=== PATIENT | female | born 2000 | race Caucasian/White ===

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

== ENCOUNTER 2021-04-02 18:56 | Emergency (ER) | payer OTHER, SELFPAY ==
--- NOTE | ~2021-04-02 | XR_ITS ---
XR lumbar spine 2-3V DATE: 04/02/2021 22:34 INDICATION: Lower back pain for one week. No injury. TECHNIQUE: AP, lateral, coned lateral lumbosacral views COMPARISON: None FINDINGS: There is mild levoscoliosis of the lumbar spine. No fracture or bone destruction is evident. The included lower thoracic and lumbar pedicles are intac t. The lumbar and lumbosacral interspaces appear relatively preserved. The sacroiliac joints are norm al. IMPRESSION: Mild levoscoliosis Reviewed, dictated and finalized at location A. IMPRESSION: Mild levoscoliosis
[2021-04-02 19:18] VITALS: BP 169/92; PULSE 95; RESP 16; TEMP 36.3; O2SAT 100
[2021-04-02 21:05] VITALS: BP 140/96; PULSE 89; RESP 16; O2SAT 98
[2021-04-02] MEDS: KETOROLAC (*BKC) 60 MG/2 ML VIAL IM (22:09)
[2021-04-02] MEDS: ORPHENADRINE CITRATE 100 MG TABLET.ER PO (22:11)
[2021-04-02 22:23] LABS: Add Urine Microscopic? YES; Appearance Urine Clear (Clear); Bilirubin Urine Negative (Negative); Blood Urine Negative (Negative); Color Urine Yellow (Yellow); Glucose Urine UA Negative (Negative); Ketones Urine Negative (Negative); Leukocyte Esterase Ur Negative LEU/UL (Negative); Mucus Urine Rare /lpf; Nitrate Urine Negative (Negative); Protein Urine 2+ mg/dL (Negative); Squamous Epithelial Cell Urine Many /hpf (Few); WBC Urine 0-3 /hpf
--- NOTE | 2021-04-02 23:02 | ED.GENADULT ---
HPI - General Adult General Chief complaint: Back Pain/Injury Stated complaint: back pain Time Seen by Provider: 04/02/21 21:48 History of Present Illness HPI narrative: Patient 21-year-old female presents the emergency department with chief complaint of back pain. Patient reports some for several months she has been having pain in her lumbar region that radiates out into the sides of her back. Patient denies any bowel or bladder dysfunction denies numbness or tingling denies focal neurological deficit. Related Data Allergies Allergy/AdvReac Type Severity Reaction Status Date / Time tea tree Allergy Unknown Unknown Verified 03/03/19 21:47 No Known Drug Allergies Allergy Unknown Verified 11/08/20 15:04 Review of Systems Review of Systems: A 10 system review of systems was completed on the patient and is negative except for what is stated in the HPI. Nursing and ancillary documentation was reviewed. [facility] Past Medical History Medical History Bipolar 1 disorder Morbid obesity Surgical History Surgical History History of ovarian cystectomy History of placement of ear tubes History of tonsillectomy Family History Family History Father Hypertension Social History Social History Smoking packs per day: 0.2 Smoking cigarettes per day: 4.0 Years smoked: 1 Smoking pack-years: 0.20 Smoking status: Never smoker Tobacco type: cigarettes Second hand tobacco smoke exposure: Yes Alcohol intake: never Substance use: former Substance use type: marijuana Last use: 09/18/2020 Gender identity (if verbalized by the patient): Female Spiritual care concerns: No Exam Narrative: GENERAL: Well-appearing, well-nourished, and in no acute distress. HEAD: Normocephalic, atraumatic. EYES: PERRLA and EOMI. ENT: Nares clear, no rhinorrhea or epistaxis. Mucous membranes moist. NECK: Supple. CHEST: Clear to auscultation. No respiratory distress. HEART: Regular rate and rhythm. No murmur heard. Normal peripheral pulses. ABDOMEN: Soft, nontender, nondistended, normal active bowel sounds. EXTREMITIES: Normal range of motion. No edema. SKIN: Warm, dry, no rash. NEURO: No focal deficits. Alert and oriented x3. PSYCH: Normal mood and affect. Course Vital Signs Vital signs: Vital Signs Temperature 36.3 C L 04/02/21 19:18 Pulse Rate 95 04/02/21 19:18 Respiratory Rate 16 04/02/21 19:18 Blood Pressure 169/92 H 04/02/21 19:18 Pulse Oximetry 100 04/02/21 19:18 Temperature 36.3 C L 04/02/21 19:18 Pulse Rate 89 04/02/21 21:05 Respiratory Rate 16 04/02/21 21:05 Blood Pressure 140/96 H 04/02/21 21:05 Pulse Oximetry 98 04/02/21 21:05 Medical Decision Making Vital Signs Vital Signs: Vital Signs Temperature 36.3 C L 04/02/21 19:18 Pulse Rate 95 04/02/21 19:18 Respiratory Rate 16 04/02/21 19:18 Blood Pressure 169/92 H 04/02/21 19:18 Pulse Oximetry 100 04/02/21 19:18 Temperature 36.3 C L 04/02/21 19:18 Pulse Rate 89 04/02/21 21:05 Respiratory Rate 16 04/02/21 21:05 Blood Pressure 140/96 H 04/02/21 21:05 Pulse Oximetry 98 04/02/21 21:05 Lab Data Labs: Lab Results 04/02/21 Range/Units 22:11 Urine Color Yellow (Yellow) Urine Appearance Clear (Clear) Urine pH 5.0 (5.0-9.0) Ur Specific Goldvein 1.030 (1.001-1.035) Urine Protein 2+ H (Negative) mg/dL Urine Glucose (UA) Negative (Negative) mg/dL Urine Ketones Negative (Negative) mg/dL Ur Blood (Man) Negative (Negative) Urine Nitrate Negative (Negative) Urine Bilirubin Negative (Negative) Urine Urobilinogen 2.0 H (<2.0) mg/dL Leukocyte Esterase Rfl Negative (Negative) NIRANJAN/UL Urine RBC 3-5 H (0-2) /hpf
[2021-04-02 23:20] VITALS: BP 140/78; PULSE 88; RESP 18; O2SAT 100
== END 2021-04-02 23:21 | disposition home or self-care (01) ==
PROVIDERS: Emergency Provider Emergency Medicine
DX: M54.5 Low back pain (principal); F31.9 Bipolar disorder, unspecified; E66.01 Morbid (severe) obesity due to excess calories; F17.210 Nicotine dependence, cigarettes, uncomplicated
CPT/HCPCS: 72100; 81001; 81025; 96372; 99283; A9270; J1885

== ENCOUNTER 2021-05-11 09:57 | Emergency (ER) | payer OTHER, SELFPAY ==
[2021-05-11 10:04] VITALS: BP 126/95; PULSE 76; RESP 16; O2SAT 98
--- NOTE | 2021-05-11 10:24 | ED.GENADULT ---
HPI - General Adult General Chief complaint: Upper Respiratory Infection Stated complaint: Congestion,Cough Source: patient Mode of arrival: ambulatory Limitations: no limitations History of Present Illness HPI narrative: Patient is a 21-year-old female who presents to the [facility] via POV for evaluation of URI symptoms that have been present for 3 weeks. Additionally, she reports wet, nonproductive cough, nasal congestion, rhinorrhea, and sore throat. No relief with OTC sinus medications. Nothing improves or worsen symptoms. Patient was seen at this facility approximately 3 weeks ago and diagnosed with a URI. She was prescribed an inhaler, prednisone, and an antibiotic. She also tested negative for Covid at that time. Symptoms persisted prompting today's visit. Patient admits that she vapes. She has received the first series of the Covid vaccine and is waiting until her symptoms resolved before receiving the second dose. She has an appointment for PCR testing at 1 PM today. She is also requesting documentation for work absence. Related Data Home Medications Medication Instructions Recorded Confirmed albuterol sulfate INHALATION 05/11/21 Allergies Allergy/AdvReac Type Severity Reaction Status Date / Time tea tree Allergy Unknown Unknown Verified 03/03/19 21:47 Review of Systems Review of Systems: Denies history of COPD, asthma, and pneumonia. Pertinent negatives: fever, sweats, chills, change in appetite, fatigue, skin color changes, headache, drooling, difficulty swallowing, dizziness, lymphadenopathy, ear pain/drainage, chest pain, heart murmurs, heart palpitations, shortness of breath, wheezing, cyanosis, hemoptysis, hoarseness, orthopnea, pleuritic pain, nausea, vomiting, diarrhea, and myalgias. PMFSH Past Medical History Medical History Bipolar 1 disorder Morbid obesity Surgical History Surgical History History of ovarian cystectomy History of placement of ear tubes History of tonsillectomy Family History Family History Father Hypertension Social History Social History Smoking packs per day: 0.2 Smoking cigarettes per day: 4.0 Years smoked: 1 Smoking pack-years: 0.20 Smoking status: Never smoker Tobacco type: cigarettes Second hand tobacco smoke exposure: Yes Alcohol intake: never Substance use: former Substance use type: marijuana Last use: 09/18/2020 Gender identity (if verbalized by the patient): Female Spiritual care concerns: No Comments I have reviewed and agree with the patient's past medical, surgical, social, and family hx as documented by the RN. There is no relevant family history pertinent to the presenting complaint. Exam Narrative: GENERAL: Well-appearing, well-nourished, and in no acute distress. HEAD: Normocephalic, atraumatic. No sinus tenderness or facial swelling appreciated. EYES: PERRLA and EOMI. No evidence of erythema, swelling, or drainage. ENT: Bilateral external ears and ear canals normal. Bilateral TMs are normal.No TM perforation. Nares clear, no rhinorrhea or epistaxis. Bilateral turbinates without erythema/ swelling. Mucous membranes moist and pink. Uvula is midline without erythema and swelling. No evidence of petechial rash, cobblestoning, lesions, ulcers, erythema, swelling, exudates, peritonsillar abscess, tenting, or drooling. Breath odor and voice normal. NECK: Supple. No Lymphadenopathy or nuchal rigidity appreciated. CHEST: Moderate rhonchi is noted throughout posterior bilateral lung pereira. No evidence of pleuritic cp upon examination. Mild, nonproductive, wet cough appreciated upon examination. HEART: Regular rate and rhythm. No murmur, gallop, or rub heard. EXTREMITIES: Normal range o
== END 2021-05-11 10:34 | disposition home or self-care (01) ==
PROVIDERS: Emergency Provider Nurse Practitioner Family
DX: J40 Bronchitis, not specified as acute or chronic (principal); E66.01 Morbid (severe) obesity due to excess calories; Z68.43 Body mass index [BMI] 50.0-59.9, adult
CPT/HCPCS: 99213; G0463

== ENCOUNTER 2021-06-01 08:47 | Emergency (ER) | payer OTHER, SELFPAY ==
[2021-06-01 08:56] VITALS: BP 144/95; PULSE 78; RESP 16; TEMP 37.4; O2SAT 99
--- NOTE | 2021-06-01 09:04 | ED.NAVMDI ---
HPI - Nausea/Vomiting/Diarrhea General Chief complaint: Nausea/Vomiting/Diarrhea Stated complaint: vomiting/diarrhea Source: patient Mode of arrival: ambulatory Limitations: no limitations History of Present Illness HPI Narrative: Patient is a 21-year-old female who presents complaining of sudden onset of nausea, vomiting and diarrhea starting early a.m. Patient reports approximately 6 episodes of nausea and vomiting since midnight, she reports 6 small episodes of diarrhea. She reports stomach is crampy and rumbling . She reports Covid vaccinated x1. She denies exposure to Covid or influenza. She denies significant medical history. Patient reports she is unable to hold down fluids at this time. Patient reports she is 5 weeks gestation, she denies vaginal discharge or bleeding, she denies pelvic pain. Patient's SIGN FABRICATOR is Dr. Cain Riley, she does not have PCP. MD elicited complaint: nausea, vomiting and diarrhea Related Data Allergies Allergy/AdvReac Type Severity Reaction Status Date / Time tea tree Allergy Unknown Unknown Verified 06/01/21 09:02 Review of Systems Review of Systems: CONSTITUTIONAL: Denies fever, chills, or sweats. EYES: Denies visual changes, redness, or discharge. ENT: Denies rhinorrhea, congestion, sore throat, or otalgia. CARDIOVASCULAR: Denies chest pain, palpitations, or edema. RESPIRATORY: Denies cough or dyspnea. GASTROINTESTINAL: Reports abdominal discomfort, nausea, vomiting, and diarrhea. GENITOURINARY: Denies dysuria or hematuria. SKIN: Denies rash or itching. MUSCULOSKELETAL: Denies back pain, joint pain, or myalgia. NEUROLOGIC: Denies headache, numbness, dizziness, or weakness. PSYCHIATRIC: Denies anxiety or depression. [facility] Past Medical History Medical History Bipolar 1 disorder Morbid obesity Surgical History Surgical History History of ovarian cystectomy History of placement of ear tubes History of tonsillectomy Family History Family History Father Hypertension Social History Social History Smoking packs per day: 0.2 Smoking cigarettes per day: 4.0 Years smoked: 1 Smoking pack-years: 0.20 Smoking status: Never smoker Tobacco type: cigarettes Second hand tobacco smoke exposure: Yes Alcohol intake: never Substance use: former Substance use type: marijuana Last use: 09/18/2020 Gender identity (if verbalized by the patient): Female Spiritual care concerns: No Comments At the time of signature, I have reviewed and agree with nursing past medical, surgical, social, and family history unless otherwise noted. Please see nursing chart for further information. There is no relevant family history pertinent to the presenting complaint. Exam Narrative: GENERAL: Well-appearing, well-nourished, and in no acute distress. HEAD: Normocephalic, atraumatic. EYES: EOMI. No redness or drainage. Conjunctiva are normal. ENT: Mucous membranes pink and moist. NECK: AROM. Supple. No lymphadenopathy. CHEST: No respiratory distress. HEART: Regular rate and rhythm. No murmur appreciated. Normal peripheral pulses. GI: Soft, nontender without rebound, or guarding. No distention. MUSCULOSKELETAL: No bony tenderness. EXTREMITIES: Normal range of motion. No edema. SKIN: Warm, dry, no rash. NEURO: No focal deficits. Alert and oriented x3. Gait steady. PSYCH: Normal affect. No signs of depression or anxiety. Course Vital Signs Vital signs: Vital Signs Temperature 37.4 C 06/01/21 08:56 Pulse Rate 78 06/01/21 08:56 Respiratory Rate 16 06/01/21 08:56 Blood Pressure 144/95 H 06/01/21 08:56 Pulse Oximetry 99 06/01/21 08:56 Temperature 37.4 C 06/01/21 08:56 Pulse Rate 78 06/01/21 08:56 Respiratory Rate 16 06/01/21 08:
[2021-06-01] MEDS: ONDANSETRON INJ 4 MG/2 ML VIAL IV PUSH (09:19)
[2021-06-01] MEDS: SODIUM CHLORIDE 0.9% IV 1,000 ML 999 ML IV CONT (09:21)
--- NOTE | 2021-06-01 09:33 | PC.NURSE ---
CALL PLACED TO DR SANDOVAL'S OFFICE. PROVIDER RABIA VASQUEZ SPOKE WITH FRITZ AT THE OFFICE.
== END 2021-06-01 10:15 | disposition home or self-care (01) ==
PROVIDERS: Emergency Provider Nurse Practitioner
DX: O21.9 Vomiting of pregnancy, unspecified (principal); Z3A.01 Less than 8 weeks gestation of pregnancy; O99.611 Diseases of the digestive system complicating pregnancy, first trimester; R19.7 Diarrhea, unspecified
CPT/HCPCS: 96361; 96374; 99214; G0463; J2405; J7030

== ENCOUNTER 2021-07-07 18:26 | Emergency (ER) | payer OTHER, SELFPAY ==
[2021-07-07 18:27] VITALS: BP 154/96; PULSE 97; RESP 17; TEMP 36.7; O2SAT 100
--- NOTE | 2021-07-07 21:15 | ED.FEMALEGU ---
HPI - Female Genitourinary General Chief complaint: Urogenital-Female <Merly Girard PA-C - Last Filed: 07/07/21 21:33> Stated complaint: yeast infection? 11 weeks <Merly Girard PA-C - Last Filed: 07/07/21 21:33> Time Seen by Provider: 07/07/21 20:58 <Merly Girard PA-C - Last Filed: 07/07/21 21:33> Source: patient <Merly Girard PA-C - Last Filed: 07/07/21 21:33> Mode of arrival: ambulatory <JUANPABLO Degroot Last Filed: 07/07/21 21:33> Limitations: no limitations <Merly Girard PA-C - Last Filed: 07/07/21 21:33> History of Present Illness HPI Narrative: This is a 21 year old , about 11 weeks , presents to the emergency department for vulvovaginal irritation. Ongoing over the last couple of days. Reports she has noted itching to the area. Reports redness and white discharge. Does report some discomfort with urination. She has had a normal ultrasound this . Her OB is Dr. Cain Riley. Denies fever, pelvic cramping or vaginal bleeding. <Merly Girard PA-C - Last Filed: 07/07/21 21:33> Related Data Allergies/Adverse reactions: Allergies Allergy/AdvReac Type Severity Reaction Status Date / Time tea tree Allergy Unknown Unknown Verified 07/07/21 18:27 <Merly Girard PA-C - Last Filed: 07/07/21 21:33> Review of Systems Review of Systems: CONSTITUTIONAL: Denies fever GENITOURINARY: Reports dysuria. Denies hematuria. SKIN: Reports itching. <Merly Girard PA-C - Last Filed: 07/07/21 21:33> All systems reviewed & are unremarkable except as noted in HPI and below <Merly Girard PA-C - Last Filed: 07/07/21 21:33> PMFSH Past Medical History Medical History: Medical History Bipolar 1 disorder Morbid obesity <Merly Girard PA-C - Last Filed: 07/07/21 21:33> Surgical History Surgical History: Surgical History History of ovarian cystectomy History of placement of ear tubes History of tonsillectomy <Merly Girard PA-C - Last Filed: 07/07/21 21:33> Family History Family History: Family History Father Hypertension <Merly Girard PA-C - Last Filed: 07/07/21 21:33> Social History Social History: Social History Smoking packs per day: 0.2 Smoking cigarettes per day: 4.0 Years smoked: 1 Smoking pack-years: 0.20 Smoking status: Never smoker Tobacco type: cigarettes Second hand tobacco smoke exposure: Yes Alcohol intake: never Substance use: former Substance use type: marijuana Last use: 09/18/2020 Gender identity (if verbalized by the patient): Female Spiritual care concerns: No <Meryl Girard PA-C - Last Filed: 07/07/21 21:33> Exam Narrative: GENERAL: Well-appearing, well-nourished, and in no acute distress. HEAD: Normocephalic, atraumatic. EYES: EOMI. CHEST: Clear to auscultation. No respiratory distress. No wheezes rales or rhonchi HEART: Regular rate and rhythm. No murmur heard. Normal peripheral pulses. ABDOMEN: Soft, nontender, nondistended, normal active bowel sounds. EXTREMITIES: Normal range of motion. No edema. SKIN: Warm, dry, no rash. NEURO: No focal deficits. Alert and oriented x3. PSYCH: Normal mood and affect FEMALE GENITAL: Mild to moderate vulvovaginal irritation with white discharge <Merly Girard PA-C - Last Filed: 07/07/21 21:33> Course PALS NURSE/PA Physician Supervision For this patient encounter, I reviewed the PALS NURSE or PA documentation, treatment plan, and medical decision making. <Mani Valdez MD - Last Filed: 07/07/21 23:12> Vital Signs Vital signs: Vital Signs Temperature 98.0 F 07/07/21 18:27 Pulse Rate 97 07/07/21 18:27 Respiratory Rate 17 07/07/21 18:27 Blood Pressure
[2021-07-07 21:17] LABS: Add Urine Microscopic? YES; Appearance Urine Cloudy (Clear); Bacteria Urine Trace /hpf; Bilirubin Urine Negative (Negative); Blood Urine 1+ (Negative); Budding Yeast Urine Present /hpf; Color Urine Yellow (Yellow); Glucose Urine UA Negative (Negative); Ketones Urine Negative (Negative); Leukocyte Esterase Ur 3+ LEU/UL (Negative); Mucus Urine Rare /lpf; Nitrate Urine Negative (Negative); Protein Urine 2+ mg/dL (Negative); Specific Grav Ur 1.023 (1.001-1.035); Squamous Epithelial Cell Urine Many /hpf (Few); WBC Urine 21-30 /hpf
[2021-07-07] MEDS: NITROFURANTOIN MONOHYD MACROCR 100 MG CAP PO (21:47)
== END 2021-07-07 21:53 | disposition home or self-care (01) ==
PROVIDERS: Physician Assistant; Emergency Provider Emergency Medicine
DX: O98.811 Other maternal infectious and parasitic diseases complicating pregnancy, first trimester (principal); B20 Human immunodeficiency virus [HIV] disease; B37.3 Candidiasis of vulva and vagina; R82.71 Bacteriuria; Z3A.11 11 weeks gestation of pregnancy
CPT/HCPCS: 81001; 87086; 87088; 99283; A9270

== ENCOUNTER 2021-09-21 14:54 | Outpatient (CLI) | payer OTHER, SELFPAY ==
--- NOTE | ~2021-09-21 | US_ITS ---
EXAMINATION: US OB /maternal detail DATE: 09/21/2021 16:39 INDICATION: survey TECHNIQUE: Multiple obstetric sonographic images performed. FINDINGS: No prior studies for comparison. There is a single living fetus in variable presentation. The placenta is anterior without placenta p revia. Amniotic fluid volume is subjectively normal. cardiac activity and movement is noted with a heart rate of 134 beats per minute. The following anatomy was identified as normal: 4 chamber heart 3 vessel cord cord insertion kidneys urinary bladder stomach spine diaphragm ventricles The cerebellum, nuchal fold and cisterna magna are not adequately visualized. The following biometric data were obtained: BPD: 52mm corresponds to gestational age 21 weeks 5 days. Head circumference: 190 mm corresponds to gestational age 21 weeks 2 days. Abdominal circumference: 162 mm corresponds to gestational age 21 weeks 2 days. Femur length: 38 mm corresponds to gestational age 22 weeks 0 days. Head circumference to abdominal circumference ratio: 1.17 (normal range for expected gestational age is 1.06-1.24). Estimated weight: 434 grams +/- 65 grams using Hadlock method. IMPRESSION: 1: Single living intrauterine with an estimated gestational age of 21weeks 4days by current ultrasound measurements, with an EDC of 01/28/2022 in variable presentation. 2. Survey limited for evaluation of cerebellum, cisterna magna and nuchal fold. Otherwise, unremarka ble survey. Reviewed, dictated and finalized at location A. [facility] IMPRESSION: 1: Single living intrauterine with an estimated gestational age of 21 weeks 4days by current ultrasound measurements, with an EDC of 01/28/2022 in juan iable presentation. 2. Survey limited for evaluation of cerebellum, cisterna magna and nuchal fold . Otherwise, unremarkable survey.
== END 2021-09-21 14:55 | disposition home or self-care (01) ==
LOC: ANHIMG 14:58
PROVIDERS: Visit Provider Obstetrics & Gynecology
DX: Z36.89 Encounter for other specified antenatal screening (principal); Z3A.21 21 weeks gestation of pregnancy
CPT/HCPCS: 76805

== ENCOUNTER 2021-11-10 16:35 | Emergency (ER) | payer OTHER, SELFPAY ==
[2021-11-10 16:47] VITALS: BP 141/74; PULSE 95; RESP 16; TEMP 37.1; O2SAT 99
--- NOTE | 2021-11-10 17:03 | ED.FEMALEGU ---
HPI - Female Genitourinary General Chief complaint: Urogenital-Female Stated complaint: uri Time Seen by Provider: 11/10/21 16:59 Source: patient and RN notes reviewed Mode of arrival: ambulatory Limitations: no limitations History of Present Illness HPI Narrative: Patient presents today complaining of dysuria and urinary frequency with pink-tinged urine since noon today. Patient is currently [address] Cain Riley. She denies vaginal bleeding, abdominal pain or cramping, fever, back pain. Denies any recent antibiotic use. MD elicited complaint: dysuria Related Data Home Medications Medication Instructions Recorded Confirmed ferrous sulfate [FeroSul] 325 mg PO DAILY 11/10/21 11/10/21 Allergies Allergy/AdvReac Type Severity Reaction Status Date / Time tea tree Allergy Unknown Unknown Verified 11/10/21 16:40 Review of Systems Review of Systems: CONSTITUTIONAL: Denies body aches, fever, chills, or sweats. EYES: Denies visual changes, redness, or discharge. ENT: Denies rhinorrhea, congestion, sore throat, or otalgia. CARDIOVASCULAR: Denies chest pain, palpitations, or edema. RESPIRATORY: Denies cough or dyspnea. GASTROINTESTINAL: Denies abdominal pain, nausea, vomiting, or diarrhea. GENITOURINARY: + Dysuria, frequency, hematuria SKIN: Denies rash, itching, or wounds. MUSCULOSKELETAL: Denies back pain, joint pain, or myalgia. NEUROLOGIC: Denies headache, numbness, tingling, or weakness. PSYCH: Denies depression or anxiety. [facility]LY [facility] Past Medical History Medical History Bipolar 1 disorder Morbid obesity Surgical History Surgical History History of ovarian cystectomy History of placement of ear tubes History of tonsillectomy Family History Family History Father Hypertension Social History Social History Smoking packs per day: 0.2 Smoking cigarettes per day: 4.0 Years smoked: 1 Smoking pack-years: 0.20 Smoking status: Never smoker Tobacco type: cigarettes Second hand tobacco smoke exposure: Yes Alcohol intake: never Substance use: former Substance use type: marijuana Last use: 09/18/2020 Gender identity (if verbalized by the patient): Female Spiritual care concerns: No Comments At time of signature, I have reviewed and agree with nursing past medical, surgical, social and family history unless otherwise noted. Please see nursing chart for further information. There is no relevant family history pertinent to the presenting complaint Exam Narrative: GENERAL: Well-appearing, well-nourished, and in no acute distress. HEAD: Normocephalic, atraumatic. EYES: EOMI. No redness or drainage. Conjunctivae normal. ENT: Mucous membranes pink and moist. NECK: Normal AROM. CHEST: No respiratory distress. Clear to auscultation. HEART: Regular rate and rhythm. No murmur appreciated. Normal peripheral pulses. ABDOMEN: Soft, nontender, normal active bowel sounds. MUSCULOSKELETAL: No bony tenderness. EXTREMITIES: Normal range of motion. No edema. SKIN: Warm, dry, no rash. Capillary refill normal. Normal skin turgor. NEURO: No focal deficits. Alert and oriented x3. Gait steady. PSYCH: Normal affect. No signs of depression or anxiety. Course Course Level of Care: Express Care Visit Vital Signs Vital signs: Vital Signs Temperature 98.7 F 11/10/21 16:47 Pulse Rate 95 11/10/21 16:47 Respiratory Rate 16 11/10/21 16:47 Blood Pressure 141/74 H 11/10/21 16:47 Pulse Oximetry 99 11/10/21 16:47 Temperature 98.7 F 11/10/21 16:47 Pulse Rate 95 11/10/21 16:47 Respiratory Rate 16 11/10/21 16:47 Blood Pressure 141/74 H 11/10/21 16:47 Pulse Oximetry 99 11/10/21 16:47 Reviewed. Pt has been instructed to f
== END 2021-11-10 17:10 | disposition home or self-care (01) ==
PROVIDERS: Emergency Provider Nurse Practitioner
DX: O23.43 Unspecified infection of urinary tract in pregnancy, third trimester (principal); N39.0 Urinary tract infection, site not specified; Z3A.29 29 weeks gestation of pregnancy
CPT/HCPCS: 81003; 87077; 87086; 87088; 99213; G0463

== ENCOUNTER 2022-01-23 13:27 | Outpatient (CLI) | payer OTHER, SELFPAY ==
[2022-01-23 13:55] VITALS: BP 128/65; PULSE 80
[2022-01-23 14:01] VITALS: BP 131/76; PULSE 89
[2022-01-23 14:08] LABS: Basophils Percent Auto 0.4 % (0.2-1.2); Eosinophils Absolute Auto 0.2 K/mm3 (0-0.3); Eosinophils Percent Auto 1.6 % (0-4.4); Hematocrit 28.9 % (37.0-47.0); Hemoglobin 8.8 g/dL (12.0-15.0); Immature Granulocyte Absolute 0.07 K/mm3 (0.00-0.031); Immature Granulocyte Percent A 0.6 % (0-0.5); Lymphocytes Absolute Auto 2.19 K/mm3 (0.9-3.2); Lymphocytes Percent Auto 20.2 % (18.3-44.2); Mean Corpuscular HGB Conc 30.4 g/dl (32-36); Mean Corpuscular Volume 75.5 fl (80-100); Mean Platelet Volume 10.2 fl (7.4-10.4); Monocytes Absolute Auto 0.7 K/mm3 (0.1-0.6); Monocytes Percent Auto 6.4 % (2.6-8.5); Neutrophils Absolute Auto 7.7 K/mm3 (1.3-6.7); Neutrophils Percent Auto 70.8 % (45.5-73.1); Platelet Count Result 317 k/mm3 (150-375); Red Blood Count 3.83 M/mm3 (4.2-5.4); Red Cell Distribution Width 17.8 % (11.5-14.5); White Blood Count 10.9 K/mm3 (4.5-10.0)
[2022-01-23 14:16] VITALS: BP 134/69; PULSE 79
[2022-01-23 14:31] VITALS: BP 128/68; PULSE 78
[2022-01-23 14:33] LABS: Alanine Aminotransferase 12 U/L (6-35); Albumin Level 3.5 g/dL (3.5-5.1); Alkaline Phosphatase 177 U/L (38-126); Anion Gap 4 mmol/L (8-16); Aspartate Amino Transferase 16 U/L (14-36); Bilirubin,Total < 0.1 mg/dL (0.2-1.3); Blood Urea Nitrogen 4 mg/dL (7-17); Calcium 8.5 mg/dL (8.4-10.2); Carbon Dioxide 22 mmol/L (22-30); Chloride 108 mmol/L (98-107); Estimated Glomerular Filt Rate > 60; Glucose 109 mg/dL (65-110); Potassium 3.5 mmol/L (3.4-5.0); Sodium 134 mmol/L (137-145); Uric Acid 6.1 mg/dL (2.5-7.5)
--- NOTE | 2022-01-23 15:09 | PC.NURSE ---
Called Dr. Cain Riley with lab results, BPs and NST results. Pt complaining of headache. Orders received.
[2022-01-23] MEDS: ACETAMINOPHEN/BUTALBITAL/CAFFEINE 325-50-40 MG TABLET (FIORICET) 1 TAB PO (15:17)
== END 2022-01-23 15:25 | disposition home or self-care (01) ==
LOC: ANHOBOP 13:33 → ANHOBPP 13:35
PROVIDERS: Visit Provider Obstetrics & Gynecology
DX: O13.3 Gestational [pregnancy-induced] hypertension without significant proteinuria, third trimester (principal); Z3A.39 39 weeks gestation of pregnancy
CPT/HCPCS: 36415; 59025; 80053; 84550; 85025; 99199; A9270

== ENCOUNTER 2022-01-24 04:56 | Inpatient (IN) | payer OTHER, SELFPAY ==
[2022-01-24] VITALS (125 sets, daily range): BP systolic 85–174; BP diastolic 42–121; PULSE 65–122; RESP 16; TEMP 36.1–37.1; O2SAT 97–100; BMI 55.0
[2022-01-24 06:23] LABS: Basophils Absolute Auto 0.1 K/mm3 (0.0-0.1); Basophils Percent Auto 0.7 % (0.2-1.2); Eosinophils Absolute Auto 0.3 K/mm3 (0-0.3); Eosinophils Percent Auto 1.9 % (0-4.4); Hematocrit 30.2 % (37.0-47.0); Hemoglobin 9.1 g/dL (12.0-15.0); Immature Granulocyte Absolute 0.07 K/mm3 (0.00-0.031); Immature Granulocyte Percent A 0.5 % (0-0.5); Lymphocytes Absolute Auto 3.08 K/mm3 (0.9-3.2); Lymphocytes Percent Auto 23.3 % (18.3-44.2); Mean Corpuscular HGB Conc 30.1 g/dl (32-36); Mean Corpuscular Hemoglobin 23.2 pg (26-34); Mean Platelet Volume 10.6 fl (7.4-10.4); Monocytes Percent Auto 7.8 % (2.6-8.5); Neutrophils Absolute Auto 8.7 K/mm3 (1.3-6.7); Neutrophils Percent Auto 65.8 % (45.5-73.1); Platelet Count Result 370 k/mm3 (150-375); Red Blood Count 3.92 M/mm3 (4.2-5.4); Red Cell Distribution Width 17.9 % (11.5-14.5); White Blood Count 13.2 K/mm3 (4.5-10.0)
[2022-01-24] MEDS: LACTATED RINGERS 1,000 ML 125 ML IV CONT ×2 (06:32→14:38)
[2022-01-24 06:35] LABS: Alanine Aminotransferase 12 U/L (6-35); Albumin Level 3.3 g/dL (3.5-5.1); Alkaline Phosphatase 178 U/L (38-126); Anion Gap 5 mmol/L (8-16); Aspartate Amino Transferase 16 U/L (14-36); Bilirubin,Total < 0.1 mg/dL (0.2-1.3); Blood Urea Nitrogen 7 mg/dL (7-17); Calcium 8.8 mg/dL (8.4-10.2); Carbon Dioxide 21 mmol/L (22-30); Chloride 108 mmol/L (98-107); Estimated Glomerular Filt Rate > 60; Glucose 86 mg/dL (65-110); Potassium 3.7 mmol/L (3.4-5.0); Sodium 134 mmol/L (137-145)
[2022-01-24 06:36] LABS: Uric Acid 6.4 mg/dL (2.5-7.5)
--- NOTE | 2022-01-24 06:49 | PM.IMHP ---
H&P: HPI History of Present Illness Date/Time: 01/24/22 06:49 Chief Complaint: Term with mildly elevated blood pressure Narrative: this is a 21 2 para 1 whose last menstrual period was 04/21/2021, EDC is 01/28/2022 confirmed by 10 week ultrasound presents at 39 weeks gestation for induction labor secondary to elevated blood pressures. Morbidly obese smoker she also had an anti E antibody 1 1 and negative following. Her pressures have been mildly elevated. PIH labs are normal. She denies headache or blurred vision. Risks and benefits of induction were reviewed. She is negative for group B strep PMFSH Past Medical History Medical History Bipolar 1 disorder Morbid obesity Surgical History Surgical History History of ovarian cystectomy History of placement of ear tubes History of tonsillectomy Family History Family History Father Hypertension Social History Social History Smoking packs per day: 0.2 Smoking cigarettes per day: 4.0 Years smoked: 1 Smoking pack-years: 0.20 Smoking status: Never smoker Tobacco type: cigarettes Second hand tobacco smoke exposure: Yes Alcohol intake: never Substance use: never Substance use type: marijuana Last use: 09/18/2020 Gender identity (if verbalized by the patient): Female Spiritual care concerns: No Meds Home Medications and Allergies Home Medications Medication Instructions Recorded Confirmed Type ferrous sulfate 325 mg (65 mg 325 mg PO DAILY 11/10/21 11/10/21 History iron) tablet (FeroSul) nitrofurantoin 100 mg PO Q12H 7 days #14 caps 11/10/21 Rx monohydrate/macrocrystals 100 mg capsule (Macrobid) Allergies Allergy/AdvReac Type Severity Reaction Status Date / Time tea tree Allergy Unknown Unknown Verified 11/10/21 16:40 Vital Signs Vital Signs - 24 hr 01/24/22 06:17 01/24/22 06:31 01/24/22 06:37 Temperature 97.6 F Pulse Rate 79 83 Blood Pressure 127/59 L 140/83 01/24/22 06:47 Temperature Pulse Rate 87 Blood Pressure 118/60 Exam Const: General: cooperative, healthy appearing and comfortable Nutritional Appearance: overweight Orientation/consciousness: oriented to person, oriented to place and oriented to time Limitations: no limitations HENMT: Head: normal to inspection Chest: Chest palpation & inspection: normal inspection of the chest Resp: Effort & Inspection: normal respiratory effort Cardio: Rate: regular rate GI: Inspection: normal to inspection and obesity : External Female Exam: normal external appearance Speculum Exam - Vagina: normal appearance of the vagina Speculum Exam - Cervix: normal appearance of the cervix and Cervical os closed ( cervix 2.5/ 60/-1. AROM clear FHTs reassuring) Bimanual exam- vagina & uterus: enlarged and soft H&P: Results Labs Labs: Short CBC 01/24/22 Range/Units 06:02 WBC 13.2 H (4.5-10.0) K/mm3 Hgb 9.1 L (12.0-15.0) g/dL Hct 30.2 L (37.0-47.0) % Plt Count 370 (150-375) k/mm3 BMP 01/24/22 06:02 Sodium 134 L Potassium 3.7 Chloride 108 H Carbon Dioxide 21 L BUN 7 Creatinine 0.40 L Glucose 86 Calcium 8.8 Liver Function 01/24/22 Range/Units 06:02 Total Bilirubin < 0.1 L (0.2-1.3) mg/dL AST 16 (14-36) U/L ALT 12 (6-35) U/L Alkaline Phosphatase 178 H (38-126) U/L Albumin 3.3 L (3.5-5.1) g/dL Assessment and Plan Assessment and plan (1) Term : Code(s): Z34.90 - Encounter for supervision of normal , unspecified, unspecified trimester Status: Acute (2) Gestational hypertension: Code(s): O13.9 - Gestational [-induced] hypertension without significant proteinuria, unspecified trimeste
[2022-01-24] MEDS: OXYTOCIN 30 UNITS/NS 500 ML 30 UNITS/500 ML BAG IV CONT (06:56)
--- NOTE | 2022-01-24 08:04 | WPDANESEPP ---
Anes - Eval Pre Procedure Procedure: Labor epidural Date/Time: 01/24/22 08:04 Surgeon: mi decker Preop Diagnosis: pain during labor Pre Op Diagnosis: Induction Patient Data Age: 22 Gender: F Height: Weight: Last Vital Signs Temp 36.4 C 01/24/22 06:37 Pulse 77 01/24/22 08:01 BP 125/70 01/24/22 08:01 Allergies Allergy/AdvReac Type Severity Reaction Status Date / Time tea tree Allergy Unknown Unknown Verified 11/10/21 16:40 Home Medications Medication Instructions Recorded Confirmed Type ferrous sulfate 325 mg (65 mg 325 mg PO DAILY 11/10/21 11/10/21 History iron) tablet (FeroSul) nitrofurantoin 100 mg PO Q12H 7 days #14 caps 11/10/21 Rx monohydrate/macrocrystals 100 mg capsule (Macrobid) Laboratory Tests 01/24/22 01/24/22 01/24/22 06:02 06:02 06:02 WBC 13.2 K/mm3 H K/mm3 (4.5-10.0) RBC 3.92 M/mm3 L M/mm3 (4.2-5.4) Hgb 9.1 g/dL L g/dL (12.0-15.0) Hct 30.2 % L % (37.0-47.0) MCV 77.0 fl L fl (80-100) MCH 23.2 pg L pg (26-34) MCHC 30.1 g/dl L g/dl (32-36) RDW 17.9 % H % (11.5-14.5) Plt Count 370 k/mm3 k/mm3 (150-375) MPV 10.6 fl H fl (7.4-10.4) Immature Gran % (Auto) 0.5 % % (0-0.5) Neut % (Auto) 65.8 % % (45.5-73.1) Lymph % (Auto) 23.3 % % (18.3-44.2) [place] % (Auto) 7.8 % % (2.6-8.5) Eos % (Auto) 1.9 % % (0-4.4) Baso % (Auto) 0.7 % % (0.2-1.2) Lymph # (Auto) 3.08 K/mm3 K/mm3 (0.9-3.2) [place] # (Auto) 1.0 K/mm3 H K/mm3 (0.1-0.6) Eos # (Auto) 0.3 K/mm3 K/mm3 (0-0.3) Baso # (Auto) 0.1 K/mm3 K/mm3 (0.0-0.1) Abs Immat Gran (auto) 0.07 K/mm3 H K/mm3 (0.00-0.031) Absolute Neuts (auto) 8.7 K/mm3 H K/mm3 (1.3-6.7) Absolute Nucleated RBC 0.0 K/mm3 K/mm3 (0.0-0.012) Nucleated RBC % 0.0 % % (0.0-0.2) Sodium Potassium Chloride Carbon Dioxide Anion Gap BUN Creatinine Estim Creat Clear Calc Estimated GFR Glucose Uric Acid 6.4 mg/dL mg/dL (2.5-7.5) Calcium Total Bilirubin AST ALT Alkaline Phosphatase Total Protein Albumin RPR Pending Blood Type Antibody Screen 01/24/22 01/24/22 06:02 06:02 WBC RBC Hgb Hct MCV MCH MCHC RDW Plt Count MPV Immature Gran % (Auto) Neut % (Auto) Lymph % (Auto) [place] % (Auto) Eos % (Auto) Baso % (Auto) Lymph # (Auto) [place] # (Auto) Eos # (Auto) Baso # (Auto) Abs Immat Gran (auto) Absolute Neuts (auto) Absolute Nucleated RBC Nucleated RBC % Sodium 134 mmol/L L mmol/L (137-145) Potassium 3.7 mmol/L mmol/L (3.4-5.0) Chloride 108 mmol/L H mmol/L (98-107) Carbon Dioxide 21 mmol/L L mmol/L (22-30) Anion Gap 5 mmol/L L mmol/L (8-16) BUN 7 mg/dL mg/dL (7-17) Creatinine 0.40 mg/dL L mg/dL (0.7-1.0) Estim Creat Clear Calc Not Reportable Estimated GFR > 60 (59 - ) Glucose 86 mg/dL mg/dL (65-110) Uric Acid Calcium 8.8 mg/dL mg/dL (8.4-10.2) Total Bilirubin < 0.1 mg/dL L mg/dL (0.2-1.3) AST 16 U/L U/L (14-36) ALT 12 U/L U/L (6-35) Alkaline Phosphatase 178 U/L H U/L (38-126) Total Protein 7.0 g/dL g/dL (6.3-8.2) Albumin 3.3 g/dL L g/dL (3.5-5.1) RPR Blood Type A Positive Antibody Screen Negative Patient hx anesthesia pr
--- NOTE | 2022-01-24 10:57 | PM.OBPNLAB ---
Pain Control Date/time seen: 01/24/22 10:57 Pain control: tolerating well Pelvic Exam Dilation (cm): 3 Effacement (%): 90 station: -1 Amniotic membrane status: Ruptured Contractions Monitor mode: Palpation Contraction frequency: 3
[2022-01-24] MEDS: fentaNYL CITRATE INJ (*CRX) 100 MCG/2 ML VIAL IV PUSH (11:32)
[2022-01-24] MEDS: LACTATED RINGERS 1,000 ML 999 ML IV CONT (12:57)
--- NOTE | 2022-01-24 13:58 | LDADM ---
This patient, Luz Oreilly, was admitted to Labor/Delivery/Recovery 105 on 01/24/22 at 04:56. Plans for labor, pain management and were discussed with patient. Patient/family oriented to hospital policies and general routines including ID bracelet, bed and alarms, visiting hours, pain management, procedures, bathroom and other care routines, personal items, smoking policy, room service/diet and guest tray routines, infant security routines, and visiting hours. Patient/Family are encouraged to report perceived risks to care and to ask questions if they do not understand what they are told or what they should do. See OBIX for further documentation.
--- NOTE | 2022-01-24 16:06 | PM.OBPNLAB ---
Pain Control Date/time seen: 01/24/22 16:06 Pain control: tolerating well and epidural Pelvic Exam Dilation (cm): 6 Effacement (%): 90 station: -1 Amniotic membrane status: Ruptured Comments: iupc Contractions Monitor mode: Palpation Contraction frequency: 3 Contraction pattern: Regular Contraction intensity: Moderate
[2022-01-24] MEDS: METHYLERGONOVINE MALEATE 0.2 MG/ML VIAL IM (18:31)
--- NOTE | 2022-01-24 18:33 | P.PCNOB_ITS ---
OB - Delivery Note Procedure Delivery date: 01/24/22 Events: Gestational Hypertension Induction method: AROM Delivery augmentation: Rupture of Membranes and Pitocin Delivery monitor: External FHT and Internal Uterine Route of delivery: Episiotomy description: None Laceration Description: None Quantitative Blood Loss (ml): 259 Anesthesia type: Epidural Disposition: Floor [place] Baby Date of : 01/24/22 Time of : 18:14 Weeks of gestation at delivery: 39 gender: Female presentation: vertex position: Right Occiput Anterior Placenta delivery description: Spontaneous Cord Vessel Description: 3 Vessels score one minute: 9 score five minutes: 9
[2022-01-24] MEDS: OXYTOCIN 30 UNITS/NS 500 ML 30 UNITS/500 ML BAG 125 UNITS IV CONT (18:57)
[2022-01-24] MEDS: WITCH HAZEL 40 PADS 1 PAD TOPICAL (20:54)
[2022-01-24] MEDS: BENZOCAINE 20% AER SPR (*SP) 56 GM CAN 1 SPRAY TOPICAL (20:54)
--- NOTE | 2022-01-24 21:07 | OBPPTRN ---
Patient transferred to post room #276 via wheelchair. Support person present. Oriented to unit, room, information board, rooming in, admission packet and security measures. Patient verbalizes understanding. with patient.
[2022-01-25] VITALS: BP 139/73; PULSE 95; RESP 16; TEMP 36.2
[2022-01-25] MEDS: IBUPROFEN 600 MG TABLET PO ×3 (00:08→17:37)
[2022-01-25 04:10] VITALS: BP 117/72; PULSE 80; RESP 16; TEMP 36.3
[2022-01-25 04:58] LABS: Hematocrit 24.3 % (37.0-47.0); Hemoglobin 7.5 g/dL (12.0-15.0)
--- NOTE | 2022-01-25 06:57 | PM.OBPNVD ---
OB - PN: Subj Subjective Date/time seen: 01/25/22 06:57 Patient comments: no complaints and pain well controlled baby status: doing well OB - PN: Obj Data Labs CBC & Chem 7: 01/25/22 03:31 01/24/22 06:02 Labs: Laboratory Results - last 24 hr 01/24/22 01/25/22 06:02 03:31 Hgb 7.5 L Hct 24.3 L Blood Type A Positive Antibody Screen Negative OB - PN A/P Assessment and Plan (1) Smoker: Code(s): F17.200 - Nicotine dependence, unspecified, uncomplicated Status: Acute (2) Gestational hypertension: Code(s): O13.9 - Gestational [-induced] hypertension without significant proteinuria, unspecified trimester Status: Acute (3) Term : Code(s): Z34.90 - Encounter for supervision of normal , unspecified, unspecified trimester Status: Acute Plan day: 1 Plan: routine care Time Spent With Patient Time: Total time spent is greater than 50% in coordination of care (as documented) at patient's floor/unit and/or counseling patient: Time with patient: less than 15 minutes
--- NOTE | 2022-01-25 07:12 | PM.DS ---
DS: Admitting Diagnosis Discharge Date 01/25/2022 Admitting Diagnosis term /gestational hypertension DS: Discharge Diagnosis Discharge Diagnosis (1) Gestational hypertension: Code(s): O13.9 - Gestational [-induced] hypertension without significant proteinuria, unspecified trimester Status: Acute (2) Smoker: Code(s): F17.200 - Nicotine dependence, unspecified, uncomplicated Status: Acute (3) Term : Code(s): Z34.90 - Encounter for supervision of normal , unspecified, unspecified trimester Status: Acute DS: Summary Hospital Course Reason for hospitalization: term with gestational hypertension Hospital Course: patient was admitted for induction of labor secondary to mildly elevated pressures. She was 39+ weeks gestation. Her hospital course was unremarkable following a vaginal delivery. She was up, breast-feeding, voiding without difficulty, ambulating and, in general Time Spent with Patient Time attestation: Total time spent providing and/or coordinating discharge services: DS: Data Data Completed and Pending Labs on day of discharge: Labs from last 24 hours 01/25/22 03:31 Hgb 7.5 L Hct 24.3 L Discharge Plan Discharge Attending physician on discharge: Jeanmarie Betts Discharging Clinician: Jeanmarie Betts Patient Disposition: Home, Self-Care Activity: may shower, no straining and pelvic rest Diet: heart healthy Wound Care Instructions: follow printed instructions Patient Instructions: Antibiotic Form Stand Alone Forms: General Discharge Information Follow-up/Referrals: Jeanmarie Betts MD [Physician] - Discharge Medications: Continued ferrous sulfate [FeroSul] 325 mg (65 mg iron) tablet 325 mg PO DAILY nitrofurantoin monohyd/m-cryst [Macrobid] 100 mg capsule 100 mg PO Q12H 7 Days Qty: 14 0RF Rx Instructions: must administer with a meal/food Date of admission: 01/24/22 04:56 Primary Care Provider: PHYSICIAN,RECORDS MANAGEMENT ANALYST Admitting Provider: Jeanmarie Betts Attending physician on admission: Jeanmarie Betts Condition: Stable
[2022-01-25] MEDS: POLYSACCHARIDE IRON COMPLEX 150 MG CAPSULE PO ×2 (07:28→17:37)
[2022-01-25] MEDS: MULTIVIT/MIN/PREN/FOL AC/IRON TABLET 1 TAB PO (07:28)
[2022-01-25] MEDS: DOCUSATE SODIUM 100 MG CAPSULE PO ×2 (07:28→17:37)
[2022-01-25 07:35] VITALS: BP 132/76; PULSE 85; RESP 18; TEMP 36.5; O2SAT 98
[2022-01-25 08:35] LABS: Rapid Plasma Reagin Non-Reactive (NonReactive)
[2022-01-25 12:35] VITALS: BP 127/72; PULSE 80; RESP 16; TEMP 36.2; O2SAT 99
--- NOTE | 2022-01-25 12:48 | PC.NURSE ---
[id number] - [id number] Introductions were made, then consulted with patient to assess needs related to . Mother led the conversation with her experience feeding her infant so far. Mother works well with her with encouragement and education. Encouraged understanding of the benefits of skin to skin (unwrapping and placing vertically on her chest), responsive feeding and how to watch for early feeding signs, frequency of feeding on demand about every 8-12 times in 24 hours (every 2-3 hours), milk production, duration of feeding, signs of adequate intake/output and how to record on the feeding sheet. Reviewed positioning and ear, shoulder, hip alignment, supporting the breast, asymmetrical latch (off-center), and leading with the chin with a big open side gape. Infant made no attempts to latch to mother's breast and is sleepy and reluctant. Mother demonstrated understanding of hand expression. RN spoon fed 7 mls of colostrum to infant. Resources used to facilitate learning were used with the visual handouts/mom and baby guide. Mother voiced understanding of responsive feedings, stimulating with skin to skin, hand expressed colostrum, touch, talking to to encourage if it has been 2 -3 hours since the start of the last , to call if infant does not latch or there is discomfort with . Reported to the primary RN. 1200 - Breast pump provided due to mother's request. Pt given a pump through insurance/[employer]. Mother states 'she is familiar with the pump because it is like the one her friend let her use with her first baby . Instructions given on cleaning, care, usage, that there should be no pain, pumping schedule for milk production, collection, and storage of human milk. Parents are encouraged to record pumping schedule on the feeding sheet. Patient was educated to pump for comfort and nipple stretching/stimulation for adequate milk production every 3 hours (8 times in 24 hours). Mother states that latched well with no pain after RN left the room earlier . Mother voiced understanding of the education shared along with mom and baby guide for additional resource information. Reported to the primary RN.
--- NOTE | 2022-01-25 13:16 | WPDANLDPN2 ---
Anes-Prog Note L&D Date/Time: 01/25/22 13:16 Comfortable throughout: labor and delivery Neuraxial method: epidural Epidural/Spinal procedure site: clean & non-tender Neuro status: Neuro function grossly intact. Cardiovascular status: normal Respiratory status: normal Airway patency: baseline Mental status: baseline Post-Op hydration status: normal Vital Signs: Last Vital Signs Temp 36.2 C L 01/25/22 12:35 Pulse 80 01/25/22 12:35 Resp 16 01/25/22 12:35 BP 127/72 01/25/22 12:35 Pulse Ox 99 01/25/22 12:35 O2 Del Method Room Air 01/25/22 07:30 Pain score (VAS): 07/30 I/O: Intake & Output 01/24/22 01/25/22 01/25/22 23:59 07:59 15:59 Intake Total 1500 700 280 Output Total 553 900 Balance 947 -200 280 Post-procedural complaints: none Patient feedback: Patient satisfied with anesthetic care.
[2022-01-25 17:00] VITALS: BP 140/87; PULSE 88; RESP 16; TEMP 36.8; O2SAT 100
== END 2022-01-25 20:06 | disposition home or self-care (01) | DRG 560 ==
LOC: ANHLDR 05:00 → ANHOB2 21:39
PROVIDERS: Admitting Provider Obstetrics & Gynecology; Visit Provider Obstetrics & Gynecology
DX: O13.4 Gestational [pregnancy-induced] hypertension without significant proteinuria, complicating childbirth (principal); Z37.0 Single live birth; Z3A.39 39 weeks gestation of pregnancy; O36.8330 Maternal care for abnormalities of the fetal heart rate or rhythm, third trimester, not applicable or unspecified; O99.214 Obesity complicating childbirth; E66.01 Morbid (severe) obesity due to excess calories; O99.334 Smoking (tobacco) complicating childbirth; F17.210 Nicotine dependence, cigarettes, uncomplicated
CPT/HCPCS: 36415; 80053; 84550; 85014; 85018; 85025; 86592; 86850; 86900; 86901; A9270; J2210; J2590; J2795; J3010; J7120

== ENCOUNTER 2024-10-13 17:01 | Emergency (ER) | payer MEDICAID, SELFPAY ==
--- NOTE | 2024-10-13 17:03 | ED.EAR ---
HPI - Ear Problem General Chief complaint: Ear Stated complaint: left ear painful Time Seen by Provider: 10/13/24 17:03 Source: patient Mode of arrival: ambulatory Limitations: no limitations History of Present Illness HPI Narrative: Luz is a 24-year-old female patient presenting to the clinic today with complaints of left ear pain times 2 days. She reports she has a sharp stabbing pain in left ear. Has had some nasal congestion and cough. Denies any fevers, chills, body aches. Related Data Allergies Allergy/AdvReac Type Severity Reaction Status Date / Time tea tree Allergy Unknown Unknown Verified 10/13/24 17:19 Review of Systems Review of Systems: Pertinent positives per HPI. Patient denies any fever, chills, rash, headache, visual changes, dizziness, shortness of breath, chest pain, palpitations, nausea, vomiting, diarrhea, constipation, abdominal pain, or any urinary issues. [facility] Past Medical History Medical History Morbid obesity Bipolar 1 disorder Surgical History Surgical History History of ovarian cystectomy History of placement of ear tubes History of tonsillectomy Family History Family History Father Hypertension Social History Social History Smoking packs per day: 0.5 Smoking cigarettes per day: 10.0 Years smoked: 3 Smoking pack-years: 1.50 Smoking status: Former smoker Tobacco type: cigarettes Second hand tobacco smoke exposure: Yes Alcohol intake: never Substance use: never Substance use type: marijuana Last use: 09/18/2020 Gender identity (if verbalized by the patient): Female Spiritual care concerns: No Comments At the time of my signature, I reviewed and agree with the nursing past medical, surgical, social, and family history. There is no relevant family history pertinent to the patient complaint. Exam Narrative: General: Well-developed, morbidly obese in no apparent distress Head: Normocephalic, atraumatic Eyes: Pupils equally round and reactive to light bilaterally, EOM intact, sclera and conjunctive clear, no discharge, lids normal Ears: Right TMs intact and congested, left TM intact, bulging, red, ear canals clear, no drainage, grossly hearing normal. Nose: Nares patent, clear discharge, no inflammation, no sinus tenderness. Mouth: Oral pharynx without lesions or masses, good dentition, MMM. Tonsils surgically absent Neck: Supple, trachea midline, no enlargement of anterior or posterior cervical nodes, no thyroid masses or goiter palpable. Cardio: Regular rate and rhythm, s1 and s2 normal, no murmur appreciated. Resp: Clear to auscultation bilaterally, no rhonchi, rales, wheezing or rubs Course Course Emergency Course: Portions of this record may have been created with voice recognition software. Level of Care: Express Care Visit Vital Signs Vital signs: Vital Signs Temperature 37.2 C 10/13/24 17:10 Pulse Rate 82 10/13/24 17:10 Respiratory Rate 18 10/13/24 17:10 Blood Pressure 132/83 10/13/24 17:10 Pulse Oximetry 100 10/13/24 17:10 Oxygen Delivery Room Air 10/13/24 17:10 Temperature 37.2 C 10/13/24 17:10 Pulse Rate 82 10/13/24 17:10 Respiratory Rate 18 10/13/24 17:10 Blood Pressure 132/83 10/13/24 17:10 Pulse Oximetry 100 10/13/24 17:10 Oxygen Delivery Room Air 10/13/24 17:10 Vital signs reviewed Medical Decision Making MDM Narrative Medical decision making narrative: At the time of visit patient is resting comfortably on the exam table. Patient appears to be nontoxic. Plan: I suspect patient has left otitis media. Prescription for amoxicillin was sent to the pharmacy. Supportive measures were discussed with the patient and they voiced understanding discharge instructions and agrees to treatment plan. Return precautions reviewed Differential Diagnosis Differential Diagnosis: Otitis media, otitis externa, eustachian tube dysfunction, cerumen impaction, upper respiratory infection, serous otitis Vital Signs Vital Signs: Vital Signs Temperature 37.2 C 10/13/24 17:10 Pulse Rate 82 10/13/24 17:10 Respiratory Rate 18 10/13/24 17:10 Blood Pressure 132/83 10/13/24 17:10 Pulse Oximetry 100 10/13/24 17:10 Oxygen Delivery Room Air 10/13/24 17:10 Temperature 37.2 C 10/13/24 17:10 Pulse Rate 82 10/13/24 17:10 Respiratory Rate 18 10/13/24 17:10 Blood Pressure 132/83 10/13/24 17:10 Pulse Oximetry 100 10/13/24 17:10 Oxygen Delivery Room Air 10/13/24 17:10 Discharge Plan Discharge Clinical Impression: Acute left otitis media Patient Disposition: Home, Self-Care Condition: Stable Instructions: Antibiotic Form, Ear Infection (ED) Additional Instructions: Take any prescribed medications only as directed-amoxicillin Tylenol/motrin as needed for pain May use heating pad to alleviate pain If you get recurrent ear infections it may be warranted to follow up with ENT. Follow up with your PCP in 3-5 days if symptoms persist. Patient Language: Albanian Prescriptions: New amoxicillin 875 mg tablet 875 mg PO Q12H 10 Days Qty: 20 0RF Follow-up/Referrals: PHYSICIAN,C[employer]IN[facility]ILDER [Primary Care Provider] - Time of Disposition: 17:24 Quality NIHSS Nursing Documentation ED NIHSS nursing documentation: reviewed/agree
[2024-10-13 17:10] VITALS: BP 132/83; PULSE 82; RESP 18; TEMP 37.2; O2SAT 100
== END 2024-10-13 17:25 | disposition home or self-care (01) ==
PROVIDERS: Emergency Provider Nurse Practitioner Family
DX: H66.92 Otitis media, unspecified, left ear (principal); Z87.891 Personal history of nicotine dependence; E66.01 Morbid (severe) obesity due to excess calories; Z68.43 Body mass index [BMI] 50.0-59.9, adult
CPT/HCPCS: 99213; G0463